=== PATIENT | female | born 1955 | race Two or more races ===

== ENCOUNTER 2018-06-24 09:10 | Outpatient (CLI) | payer OTHER | END 2018-06-24 11:06 | disposition home or self-care (01) | LOC: TOM 09:10 | DX: K56.50 Intestinal adhesions [bands], unspecified as to partial versus complete obstruction (principal); Q41.8 Congenital absence, atresia and stenosis of other specified parts of small intestine; K57.32 Diverticulitis of large intestine without perforation or abscess without bleeding ==